=== PATIENT | male | born 1965 | race African-American/Black ===

== ENCOUNTER 2016-06-04 08:58 | Emergency (ER) | payer MEDICAID ==
[~2016-06-04] VITALS: Ht 175.3 cm; Wt 107.9 kg
[~2016-06-04 08:58] MED LIST: ACET-1465 PO; ASPI-1035 PO; IPRA4AER IH; METO25TA6 PO; TRIA1CAP PO
[2016-06-04] MEDS ORDERED: PREDNISONE 20MG TABLET PO STA (09:25)
[2016-06-04] MEDS ORDERED: IPRATROPIUM BROMIDE (0.02%) 0.5MG/2.5ML NEB HHN STA (09:25)
[2016-06-04] MEDS ORDERED: ALBUTEROL (0.083%) 2.5MG/3ML NEB HHN STA (09:25)
[2016-06-04 11:12] VITALS: BP 127/60
== END 2016-06-04 11:57 | disposition home or self-care (01) ==
LOC: ER 11:46
DX: J44.1 Chronic obstructive pulmonary disease with (acute) exacerbation (principal); J45.901 Unspecified asthma with (acute) exacerbation; F17.210 Nicotine dependence, cigarettes, uncomplicated; I10 Essential (primary) hypertension; Z71.6 Tobacco abuse counseling; I25.10 Atherosclerotic heart disease of native coronary artery without angina pectoris; Z98.61 Coronary angioplasty status; Z79.82 Long term (current) use of aspirin; Z79.899 Other long term (current) drug therapy
CPT/HCPCS: 71010; 94640; 99283; 99406; J7512; J7611; Z7610